=== PATIENT | female | born 1960 | race Caucasian/White ===

== ENCOUNTER → 2020-02-03 13:16 | Outpatient (CLI) | payer BC, SELFPAY ==
--- NOTE | ~2020-02-03 | US_ITS ---
EXAMINATION: US soft tissue UE RT DATE: 02/03/2020 13:34 INDICATION: Chronic enlarging right shoulder mass TECHNIQUE: Multiple grayscale and Doppler ultrasound images of the region of concern at the anterior right shoulder were obtained. COMPARISON: None FINDINGS: There is minimal vascular flow on color Doppler within the central aspect of a 4.1 x 1.9 x 0.8 cm emily ticular intramuscular mass at the region of concern. The mass is hyperechoic to the surrounding muscu lature with similar echogenicity and echotexture to the adjacent subcutaneous fat. IMPRESSION: 1. Nonspecific 4.1 x 1.9 x 0.8 cm intramuscular mass at the region of concern. Appearance would be co nsistent with an statistically most likely to represent an intramuscular lipoma however would recomme nd CT or MRI for definitive determination. Reviewed, dictated and finalized at location A. IMPRESSION: 1. Nonspecific 4.1 x 1.9 x 0.8 cm intramuscular mass at the region of concern. Appearance would be consistent with an statistically most likely to represent a n intramuscular lipoma however would recommend CT or MRI for definitive determi nation.
== END ==
PROVIDERS: PCP Chiropractor; Visit Provider Chiropractor
DX: R22.31 Localized swelling, mass and lump, right upper limb (principal)
CPT/HCPCS: 76882

== ENCOUNTER 2020-02-13 14:13 | Emergency (ER) | payer BC, SELFPAY ==
--- NOTE | ~2020-02-13 | XR_ITS ---
EXAMINATION: XR chest 1V portable INDICATION: Cough and sore throat TECHNIQUE: Portable AP chest at 1458 hours COMPARISON: 06/08/2018 FINDINGS: The lungs are free of acute opacities. There is no pleural effusion or pneumothorax. A calc ified nodule of the right lung is consistent with old granulomatous disease. The cardiomediastinal si lhouette is normal. There are changes of anterior fusion procedure in the lower cervical spine. Breas t implants are noted. IMPRESSION: 1. No acute cardiopulmonary abnormality. Reviewed, dictated and finalized at location A.
[2020-02-13 14:14] VITALS: BP 128/53; PULSE 91; RESP 18; TEMP 37.2; O2SAT 100
--- NOTE | 2020-02-13 14:53 | ED.GENADULT ---
HPI - General Adult General Chief complaint: Unspecified <GUERA Cabrera Last Filed: 02/13/20 17:00> Stated complaint: IM SO TIRED, BEEN SLEEPING NONSTOP, ST <GUERA Cabrera Last Filed: 02/13/20 17:00> Time Seen by Provider: 02/13/20 14:36 <GUEAR Cabrera Last Filed: 02/13/20 17:00> Source: patient <GUERA Cabrera Last Filed: 02/13/20 17:00> Mode of arrival: ambulatory <GUERA Cabrera Last Filed: 02/13/20 17:00> Limitations: no limitations <GUERA Cabrera Last Filed: 02/13/20 17:00> History of Present Illness HPI narrative: Patient is a 59-year-old female who presents with sore throat congestion rhinorrhea nonproductive cough that have been present since Thursday denies sick contacts or exposures notes intermittent aching of the throat worse with swallowing has not taken anything since Thursday for symptoms. Patient denies any vomiting diarrhea and is otherwise arrived in no distress resting comfortably in the room has not been seen for this complaint <GUERA Cabrera Last Filed: 02/13/20 17:00> Related Data Home medications: Home Medications Medication Instructions Recorded Confirmed clonazepam 0.5 mg PO DAILY PRN 02/13/20 dextroamphetamine-amphetamine 10 mg PO DAILY 02/13/20 fluoxetine 20 mg PO DAILY 02/13/20 omeprazole 40 mg PO DAILY 02/13/20 thyroid (pork) [[place] Thyroid] 60 mg PO DAILY 02/13/20 <GUERA Cabrera Last Filed: 02/13/20 17:00> Allergies/adverse reactions: Allergies Allergy/AdvReac Type Severity Reaction Status Date / Time No Known Allergies Allergy Unverified 02/13/20 14:26 cyclobenzaprine AdvReac Unknown leg cramps Verified 02/13/20 14:53 <GUERA Cabrera Last Filed: 02/13/20 17:00> Review of Systems Review of Systems: All systems reviewed & are unremarkable except as noted in HPI and below <GUERA Cabrera Last Filed: 02/13/20 17:00> [facility] Past Medical History Medical History: Medical History (Updated 02/13/20 @ 16:59 by Bruno Choi PA-C) Depression Hypothyroidism <Bruno Choi PA-C - Last Filed: 02/13/20 17:00> Family History Family History: Family History (Updated 09/22/18 @ 09:59 by DOCTOR UNKNOWN) Grandparent Diabetes mellitus Family history of cardiovascular disease Carcinoma of colon Mother Depression Hypertension Family history of elevated blood lipids Family history of cardiovascular disease Family history of malignant neoplasm of uterus Family history of malignant neoplasm of breast in first degree relative Father Hypertension Family history of elevated blood lipids Family history of cardiovascular disease Cerebrovascular accident <Bruno Choi PA-C - Last Filed: 02/13/20 17:00> Social History Social History: Social History Smoking status: Former smoker Second hand tobacco smoke exposure: Yes Alcohol intake: current Gender identity (if verbalized by the patient): Female <Bruno Choi PA-C - Last Filed: 02/13/20 17:00> Exam Narrative: Exam Narrative: GENERAL: ill-appearing, well-nourished, and in no acute distress. HEAD: Normocephalic, atraumatic. EYES: PERRLA and EOMI. ENT: Nares clear, no rhinorrhea or epistaxis. Mucous membranes moist. Oropharynx with slight erythema and without tonsillar hypertrophy exudate or other lesions. NECK: Supple. No adenopathy or masses. CHEST: Clear to auscultation. No respiratory distress. No wheezes rales or rhonchi HEART: Regular rate and rhythm. No murmur heard. EXTREMITIES: Normal range of motion. No edema. SKIN: Warm, dry, no rash. NEURO: No focal deficits. Alert and oriented x3. PSYCH: Normal mood and affect. <Bruno Choi PA-C - Last Filed: 02/13/20 17:00> Course Course Emergency Course: Patient in the room at this time aware o
[2020-02-13] MEDS: SODIUM CHLORIDE 0.9% IV 1,000 ML 999 ML IV CONT ×2 (15:12→16:55)
[2020-02-13 15:24] LABS: Basophils Percent Auto 0.3 % (0.2-1.2); Eosinophils Absolute Auto 0.1 K/mm3 (0-0.3); Eosinophils Percent Auto 1.2 % (0-4.4); Hematocrit 42.8 % (37.0-47.0); Hemoglobin 14.3 g/dL (12.0-15.0); Immature Granulocyte Absolute 0.02 K/mm3 (0.00-0.031); Immature Granulocyte Percent A 0.3 % (0-0.5); Lymphocytes Absolute Auto 2.25 K/mm3 (0.9-3.2); Lymphocytes Percent Auto 33.4 % (18.3-44.2); Mean Corpuscular HGB Conc 33.4 g/dl (32-36); Mean Corpuscular Hemoglobin 30.2 pg (26-34); Mean Corpuscular Volume 90.3 fl (80-100); Mean Platelet Volume 9.1 fl (7.4-10.4); Monocytes Absolute Auto 0.4 K/mm3 (0.1-0.6); Monocytes Percent Auto 6.5 % (2.6-8.5); Neutrophils Absolute Auto 3.9 K/mm3 (1.3-6.7); Neutrophils Percent Auto 58.3 % (45.5-73.1); Platelet Count Result 382 k/mm3 (150-375); Red Blood Count 4.74 M/mm3 (4.2-5.4); Red Cell Distribution Width 13.2 % (11.5-14.5); White Blood Count 6.7 K/mm3 (4.5-10.0)
[2020-02-13 15:36] LABS: Alanine Aminotransferase 163 U/L (4-35); Albumin Level 4.6 g/dL (3.5-5.1); Alkaline Phosphatase 60 U/L (38-126); Anion Gap 10 mmol/L (8-16); Aspartate Amino Transferase 149 U/L (14-36); Bilirubin,Total 0.4 mg/dL (0.2-1.3); Blood Urea Nitrogen 10 mg/dL (7-17); Calcium 9.3 mg/dL (8.4-10.2); Carbon Dioxide 27 mmol/L (22-30); Chloride 101 mmol/L (98-107); Estimated CRCL calculation 59 ml/min; Estimated Glomerular Filt Rate > 60; Glucose 115 mg/dL (65-105); Lipase 71 U/L (23-300); Potassium 3.6 mmol/L (3.4-5.0); Sodium 138 mmol/L (137-145)
[2020-02-13 15:38] LABS: CRP < 0.5 mg/dL (<1.0)
--- NOTE | 2020-02-13 16:03 | PC.NURSE ---
called lab to add on monotest
[2020-02-13 16:47] LABS: Add Urine Microscopic? YES; Appearance Urine Clear (Clear); Bacteria Urine Trace /hpf; Bilirubin Urine Negative (Negative); Blood Urine 2+ (Negative); Color Urine Straw (Yellow); Glucose Urine UA Negative (Negative); Ketones Urine Negative (Negative); Leukocyte Esterase Ur Negative LEU/UL (Negative); Nitrate Urine Negative (Negative); Protein Urine Negative (Negative); Squamous Epithelial Cell Urine Moderate /hpf (Few); Urobilinogen Urine Negative mg/dL (<2.0); WBC Urine 0-3 /hpf
[2020-02-13 16:48] LABS: Monoscreen Negative (Negative); Negative Monotest Control Negative (Negative); Positive Monotest Control Positive (Positive)
[2020-02-13 17:48] VITALS: BP 124/42; PULSE 75; RESP 20; O2SAT 100
[2020-02-14 00:09] LABS: SARS-CoV-2 RNA PCR Negative
== END 2020-02-13 17:49 | disposition home or self-care (01) ==
PROVIDERS: Emergency Medicine Emergency Medical Services; Emergency Provider Emergency Medicine; PCP Chiropractor
DX: J06.9 Acute upper respiratory infection, unspecified (principal); F32.9 Major depressive disorder, single episode, unspecified; E03.9 Hypothyroidism, unspecified; Z20.828 Contact with and (suspected) exposure to other viral communicable diseases
CPT/HCPCS: 36415; 71045; 80053; 81001; 83690; 85025; 86140; 86308; 87081; 87635; 87880; 96361; 96365; 99284; C9803; J0131; J7030; U0003

== ENCOUNTER → 2020-02-22 09:51 | Outpatient (CLI) | payer BC, SELFPAY ==
--- NOTE | ~2020-02-22 | XR_ITS ---
EXAMINATION: XR shoulder RT min 2V DATE: 02/22/2020 10:18 INDICATION: Right shoulder pain and lump. TECHNIQUE: 4 views of right shoulder were obtained. COMPARISON: Ultrasound 02/03/2020 FINDINGS: Bone alignment is normal. No fracture. There is mild osteoarthritis of glenohumeral joint a nd acromioclavicular joint characterized by tiny marginal osteophytes. IMPRESSION: 1. Mild polyarticular osteoarthritis. Reviewed, dictated and finalized at location B.
== END ==
PROVIDERS: Visit Provider Chiropractor
DX: M19.011 Primary osteoarthritis, right shoulder (principal)
CPT/HCPCS: 73030

== ENCOUNTER → 2020-03-09 14:24 | Outpatient (CLI) | payer BC, SELFPAY ==
--- NOTE | ~2020-03-09 | MR_ITS ---
EXAMINATION: MR shoulder RT w con DATE: 03/09/2020 16:11 INDICATION: Right shoulder pain. TECHNIQUE: Magnetic resonance imaging (MRI) of the right shoulder was performed without intravenous c ontrast after intra-articular injection of contrast (MR arthrogram). Sequences included axial T1-weig hted FS FSE and T2-weighted FS FSE, coronal-oblique T1-weighted FS FSE and T2-weighted FS FSE, sagitt al-oblique T1-weighted FSE and T2-weighed FS FSE, and ABER T1-weighted FS FSE. COMPARISON: Right shoulder radiographs 02/22/2020 FINDINGS: Coracoacromial arch: The acromion undersurface is curved in morphology (type II). The acromioclavicular joint is normal. T here is moderate subacromial/subdeltoid bursitis with trace contrast. Rotator cuff: There is a pmsn-pppt-asgzskmvy, bursal-sided tear of supraspinatus tendon measuring 14 mm anterior to posterior by 15 mm proximal to distal. There is a small interstitial tear of infraspinatus tendon. T eres minor tendon is normal. There is mild subscapularis tendinopathy. There is no asymmetric fatty a trophy of the rotator cuff muscle bellies. Biceps tendon and glenoid labrum: Biceps tendon is in bicipital groove. Intra-articular biceps tendon is normal. The glenoid labrum is normal. Fluid: The glenohumeral joint is well distended by contrast. Bones/cartilage: Humeral head cartilage is normal. Glenoid cartilage is normal. IMPRESSION: 1. Fktv-nxex-gybddlsye, bursal-sided rotator cuff tear. Reviewed, dictated and finalized at location A. IMPRESSION: 1. Kpmr-crno-rgjtzvxov, bursal-sided rotator cuff tear.
--- NOTE | ~2020-03-09 | XR_ITS ---
EXAMINATION: XR fl inj shoulder RT - MR/CT DATE: 03/09/2020 15:35 INDICATION: Right shoulder pain TECHNIQUE: A time-out was performed to verify the patient's name, date of , and procedure to b e performed. The procedure including the risks and benefits was discussed with the patient. Risks dis cussed included bleeding and infection. The patient understood the risks and agreed to proceed. The s kin overlying the right glenohumeral joint was prepared and draped in usual sterile fashion. The skin and subcutaneous tissues were infiltrated with 1% lidocaine for local anesthesia. A 22 G needle was advanced under fluoroscopic guidance into the joint. Injectate consisting of 11 mL of 1:200 0.1 mmol /kg Multihance, 1:4 1% lidocaine, and 1:4 Omnipaque 240 was instilled. The needle was removed and the entry site was cleaned and dressed. There were no immediate complications. Fluoroscopy exposure time was 0.4 minutes. The DAP for this procedure was 0.26 Gycm2. FINDINGS: Real-time fluoroscopy demonstrates the needle and contrast in the right glenohumeral joint. IMPRESSION: 1. Successful right glenohumeral joint injection of contrast for subsequent MR arthrography. Reviewed, dictated and finalized at location B.
== END ==
PROVIDERS: PCP Chiropractor; Visit Provider Chiropractor
DX: M75.111 Incomplete rotator cuff tear or rupture of right shoulder, not specified as traumatic (principal)
CPT/HCPCS: 23350; 73222; 77002; A9577; Q9966

== ENCOUNTER 2021-04-25 11:38 | Emergency (ER) | payer OTHER, SELFPAY ==
[2021-04-25 11:51] VITALS: BP 138/73; PULSE 96; RESP 16; TEMP 37; O2SAT 99
--- NOTE | 2021-04-25 11:57 | ED.WOUNDLAC ---
HPI - Wound/Laceration General Chief Complaint: Wound/Laceration Stated Complaint: cut right 2nd finger Time Seen by Provider: 04/25/21 11:57 Source: patient, RN notes reviewed and old records reviewed Mode of arrival: ambulatory Limitations: no limitations History of Present Illness HPI narrative: 60-year-old female presents to the [facility] with a laceration to the dorsal aspect right hand the base of the 2nd finger. Patient reports that she was walking when she kind of tripped, caught herself on a garbage can when she noticed the laceration to the dorsal aspect of her hand. Unknown last tetanus. Bleeding is controlled. Full range of motion, sensation and capillary refill within normal limits distal to injury. Denies completely falling, denies head trauma. No loss of consciousness. No back pain, chest pain or abdominal pain. Patient has a history of anxiety depression, ADHD, Pearce's esophagus and high cholesterol along with thyroid issues Related Data Home Medications Medication Instructions Recorded Confirmed dextroamphetamine-amphetamine 10 mg PO DAILY 02/13/20 04/25/21 fluoxetine 20 mg PO DAILY 02/13/20 04/25/21 omeprazole 40 mg PO DAILY 02/13/20 04/25/21 thyroid (pork) [[place] Thyroid] 60 mg PO DAILY 02/13/20 04/25/21 buspirone 5 mg PO DAILY 04/25/21 04/25/21 loratadine 10 mg PO DAILY 04/25/21 04/25/21 pravastatin 20 mg PO DAILY 04/25/21 04/25/21 Allergies Allergy/AdvReac Type Severity Reaction Status Date / Time cyclobenzaprine AdvReac Intermediate leg cramps Verified 04/25/21 12:19 Review of Systems Review of Systems: All systems reviewed & are unremarkable except as noted in HPI and below Constitutional: Constitutional: Reports no additional constitutional complaints, Denies chills and Denies fever(s) Eyes: Eyes: Reports no additional eye complaints ENT: Reports system reviewed and no additional complaints, except as documented Cardiovascular: Cardiovascular: Reports no additional cardiovascular complaints and Denies chest pain Respiratory: Respiratory: Reports no additional respiratory complaints, Denies cough and Denies dyspnea Gastrointestinal: Gastrointestinal: Reports no additional gastrointestinal complaints and Denies abdominal pain Musculoskeletal: Musculoskeletal: Reports no additional musculoskeletal complaints Integumentary/Breasts: Skin/Breast: Reports as per HPI Comments: Laceration, dorsal aspect right hand Neurologic: Reports system reviewed and no additional complaints, except as documented Psychiatric: Psychiatric: Reports no additional psychiatric complaints Allergic/Immunologic: Allergic/Immunologic: Reports no additional allergic/immunologic complaints PMFSH Past Medical History Medical History Depression Hypothyroidism Family History Family History Grandparent Diabetes mellitus Family history of cardiovascular disease Carcinoma of colon Mother Depression Hypertension Family history of elevated blood lipids Family history of cardiovascular disease Family history of malignant neoplasm of uterus Family history of malignant neoplasm of breast in first degree relative Father Hypertension Family history of elevated blood lipids Family history of cardiovascular disease Cerebrovascular accident Social History Social History Smoking status: Former smoker Second hand tobacco smoke exposure: Yes Alcohol intake: current Gender identity (if verbalized by the patient): Female Comments At the time of my signature, I reviewed and agree with the nursing past medical, surgical, social, and family history. There is no relevant family history pertinent to the patient complaint. Exam Const: General: healthy appearing, no acute distress and alert Nutritional Appearance: well nourished Orientation/consciousness: patie
[2021-04-25 12:23] VITALS: BP 138/73; PULSE 96; RESP 16; TEMP 37; O2SAT 99
[2021-04-25] MEDS: TETANUS,DIPHTHERIA,AC PERTUSSIS ADULT (0.5 ML) BOOSTRIX IM (12:57)
== END 2021-04-25 13:05 | disposition home or self-care (01) ==
PROVIDERS: Emergency Provider Nurse Practitioner
DX: S61.411A Laceration without foreign body of right hand, initial encounter (principal); W22.8XXA Striking against or struck by other objects, initial encounter; Z23 Encounter for immunization; Z87.891 Personal history of nicotine dependence; E03.9 Hypothyroidism, unspecified; F32.A Depression, unspecified
CPT/HCPCS: 12001; 90471; 90715; 99213; G0463

== ENCOUNTER 2021-06-23 11:43 | Emergency (ER) | payer OTHER, SELFPAY ==
--- NOTE | 2021-06-23 11:55 | ED.WOUNDLAC ---
HPI - Wound/Laceration General Chief Complaint: Wound/Laceration Stated Complaint: laceration lt hand Time Seen by Provider: 06/23/21 11:55 Source: patient and RN notes reviewed History of Present Illness HPI narrative: Patient is a 60-year-old female who presents the urgent care with complaints of a laceration to the left hand. Patient states that happened last night at 6 PM with a knife while she was cutting avocado. Patient is up-to-date on her tetanus shot. States that she cleaned it out with peroxide and water. No other acute complaints. No acute distress noted. Patient aware of the plan of care. Some parts of this dictation were generated by voice recognition software and may contain typographical and/or grammatical inaccuracies. Related Data Home Medications Medication Instructions Recorded Confirmed dextroamphetamine-amphetamine 10 mg PO DAILY 02/13/20 06/23/21 fluoxetine 20 mg PO DAILY 02/13/20 06/23/21 omeprazole 40 mg PO DAILY 02/13/20 06/23/21 thyroid (pork) [[place] Thyroid] 60 mg PO DAILY 02/13/20 06/23/21 buspirone 5 mg PO DAILY 04/25/21 06/23/21 loratadine 10 mg PO DAILY 04/25/21 06/23/21 pravastatin 20 mg PO DAILY 04/25/21 06/23/21 Allergies Allergy/AdvReac Type Severity Reaction Status Date / Time cyclobenzaprine AdvReac Intermediate leg cramps Verified 06/23/21 12:20 Review of Systems Review of Systems: CONSTITUTIONAL: Denies fever, chills, or sweats. EYES: Denies visual changes, redness, or discharge. ENT: Denies rhinorrhea, congestion, sore throat, or otalgia. CARDIOVASCULAR: Denies chest pain, palpitations, or edema. RESPIRATORY: Denies cough or dyspnea. GASTROINTESTINAL: Denies abdominal pain, nausea, vomiting, or diarrhea. GENITOURINARY: Denies dysuria or hematuria. SKIN: Reports of a laceration to the left hand MUSCULOSKELETAL: Denies back pain, joint pain, or myalgia. NEUROLOGIC: Denies headache, numbness, or weakness. All other systems reviewed are negative, except as documented in HPI. [facility] Past Medical History Medical History Depression Hypothyroidism Family History Family History Grandparent Diabetes mellitus Family history of cardiovascular disease Carcinoma of colon Mother Depression Hypertension Family history of elevated blood lipids Family history of cardiovascular disease Family history of malignant neoplasm of uterus Family history of malignant neoplasm of breast in first degree relative Father Hypertension Family history of elevated blood lipids Family history of cardiovascular disease Cerebrovascular accident Social History Social History Smoking status: Former smoker Second hand tobacco smoke exposure: Yes Alcohol intake: current Gender identity (if verbalized by the patient): Female Comments At the time of my signature, I reviewed and agree with the nursing past medical, surgical, social, and family history. There is no relevant family history pertinent to the patient complaint. Exam Narrative: GENERAL: This is a well-nourished, well-developed patient, in no apparent distress. HEAD: normocephalic, atraumatic. EYES: PERRL. Sclera clear/white. Vision is grossly intact. EARS: External ears normal NOSE: External nose normal with no obvious nasal discharge, nares without redness, no rhinorrhea. THROAT: Mucous membranes moist NECK: Neck supple CARDIOVASCULAR: Regular rate and rhythm without murmurs, gallops, or rubs. RESPIRATORY: Clear to auscultation. Breath sounds equal bilaterally. No wheezes, rales, or rhonchi. SKIN: 4 cm linear laceration to the thenar eminence of the left hand between the thumb and index finger. Corners of the laceration are superficial with very mild up to the center. Warm, intact with no suspicious lesions or rash, good texture and turgor. NEURO: awake, alert, and oriented
[2021-06-23 12:15] VITALS: BP 140/71; PULSE 94; RESP 18; TEMP 36.9; O2SAT 100
== END 2021-06-23 12:38 | disposition home or self-care (01) ==
PROVIDERS: Emergency Provider Nurse Practitioner Family; PCP Nurse Practitioner
DX: S61.412A Laceration without foreign body of left hand, initial encounter (principal); W26.0XXA Contact with knife, initial encounter; Z87.891 Personal history of nicotine dependence; E03.9 Hypothyroidism, unspecified; F32.A Depression, unspecified
CPT/HCPCS: 12002; 99213; G0463

== ENCOUNTER 2021-10-28 08:27 | Outpatient (CLI) | payer OTHER, SELFPAY ==
--- NOTE | ~2021-10-28 | MM_ITS ---
EXAMINATION: MM scrn christopher implant BI w annette HISTORY: Screening mammogram TECHNIQUE: Craniocaudal and mediolateral oblique 3-D tomosynthesis images with implant displacement a nd synthetic 2-D images were generated. Craniocaudal and mediolateral oblique views of the breasts wi thout implant displacement were obtained using full field digital mammography. CAD analysis was submi tted and interpreted. COMPARISON: 05/25/2018, 04/15/2017 bilateral implant screening mammogram examinations BREAST PARENCHYMAL COMPOSITION: The breasts are heterogeneously dense, which may obscure small masses . FINDINGS: Status post bilateral augmentation mammoplasty. There is no evidence of suspicious mass, ca lcification, or architectural distortion to suggest malignancy in either breast. There has been no joel spicious interval change. IMPRESSION: 1. No mammographic evidence of malignancy. 2. Recommend routine screening mammography in one year. BI-RADS Category 1: Negative Reviewed, dictated and finalized at location A.
== END 2021-10-28 08:28 | disposition home or self-care (01) ==
LOC: ANHIMG 08:29
PROVIDERS: PCP Nurse Practitioner; Visit Provider Nurse Practitioner
DX: Z12.31 Encounter for screening mammogram for malignant neoplasm of breast (principal)
CPT/HCPCS: 77063; 77067